=== PATIENT | female | born 1965 | race Caucasian/White ===

== ENCOUNTER 2024-04-20 17:59 | Emergency (ER) | payer OTHER ==
[2024-04-20 18:08] VITALS: RESP 17
--- NOTE | 2024-04-20 18:14 | ED ---
Fall HPI - General Chief Complaint: Extremity Injury, Upper Stated Complaint: fall Source: patient, EMS, RN notes reviewed, old records reviewed Mode of arrival: EMS - History of Present Illness Initial Comments: This is a 58 female to the ER for evaluation patient presents today for evaluation regards to severe right arm pain right shoulder pain after a fall fall off treadmill. 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: yes, by living facility staff Place Fall Occurred: home Loss of Consciousness: none Prolonged Down Time?: no Symptoms Prior to Fall: none Location: face Location - Extremities: Right: Shoulder Severity: severe Severity scale (1-10): 9 Quality: sharp Context: tripped/slipped Associated Symptoms: denies - Related Data Allergies Allergy/AdvReac Type Severity Reaction Status Date / Time aspirin AdvReac Nausea & Verified 04/20/24 18:10 Vomiting iron AdvReac Nausea & Verified 04/20/24 18:10 Vomiting Penicillins AdvReac Nausea & Verified 04/20/24 18:10 Vomiting Review of Systems ROS Statement: Those systems with pertinent positive or pertinent negative responses have been documented in the HPI. ROS Other: All systems not noted in ROS Statement are negative. Past Medical History Past Medical History: Cancer Additional Past Medical History / Comment(s): anxiety, depression, cervical cancer History of Any Multi-Drug Resistant Organisms: None Reported Past Surgical History: Tubal Ligation Past Psychological History: Anxiety, Depression Smoking Status: Former smoker Past Alcohol Use History: Abuse Past Drug Use History: Methamphetamine General Exam General appearance: alert, in no apparent distress Head exam: Present: atraumatic, normocephalic, normal inspection Eye exam: Present: normal appearance, PERRL, EOMI. Absent: scleral icterus, conjunctival injection, periorbital swelling ENT exam: Present: normal exam, mucous membranes moist Neck exam: Present: normal inspection. Absent: tenderness, meningismus, lymphadenopathy Respiratory exam: Present: normal lung sounds bilaterally. Absent: respiratory distress, wheezes, rales, rhonchi, stridor Cardiovascular Exam: Present: regular rate, normal rhythm, normal heart sounds. Absent: systolic murmur, diastolic murmur, rubs, gallop, clicks GI/Abdominal exam: Present: soft, normal bowel sounds. Absent: distended, tenderness, guarding, rebound, rigid Extremities exam: Present: normal inspection, full ROM, normal capillary refill. Absent: tenderness, pedal edema, joint swelling, calf tenderness Back exam: Present: normal inspection Neurological exam: Present: alert, oriented X3, CN II-XII intact Psychiatric exam: Present: normal affect, normal mood Skin exam: Present: warm, dry, intact, normal color. Absent: rash Course Vital Signs 04/20/24 18:02 Temperature 98 F Pulse Rate 68 Respiratory 17 Rate Blood Pressure 129/86 O2 Sat by Pulse 98 Oximetry - Reevaluation(s) Reevaluation #1: 04/20/24 18:54 Medical records reviewed Reevaluation #2: 04/20/24 18:54 Patient's pain is improved Reevaluation #4: Was pt. sent in by a medical professional or institution ([facility], [employer], urgent care, hospital, or fdc...) When possible be specific @ -no Did you speak to anyone other than the patient for history (EMS, parent, family, police, friend...)? What history was obtained from this source @ -no Did you review nursing and triage notes (agree or disagree)? Why? @ -agree Are old charts reviewed (outside hosp., previous admission, EMS record, old EKG, old radiological studies, urgent care reports/EKG's, fdc records)? Report findings @ -yes Differential Diagnosis (chest pain, altered mental status, abdominal pain women, abdominal pain men, vaginal bleeding, weakness, fever, dyspnea, syncope, headache, dizziness, GI bleed, back pain, seizure, CVA, palpatations, mental health, musculoskeletal)? @ -prior EKG interpreted by me (3pts min.). @ -yes X-rays interpreted by me (1pt min.). @ -yes negative for acute disease CT interpreted by me (1pt min.). @ -no U/S interpreted by me (1pt. min.). @ -no What testing was considered but not performed or refused? (CT, X-rays, U/S, labs)? Why? @ -none What meds were considered but not given or refused? Why? @ -none Did you discuss the management of the patient with other professionals (professionals i.e. [facility], [employer], lab, RT, psych nurse, social psychologist, aircraft technician, teacher, forward air controller/air officer, residential case manager)? Give summary @ -no Was smoking cessation discussed for >3mins.? @ -no Was critical care preformed (if so, how long)? @ -no Were there social determinants of health that impacted care today? How? (Homelessness, low income, unemployed, alcoholism, drug addiction, transportation, low edu. Level, literacy, decrease access to med. care, longterm, rehab)? @ -none Was there de-escalation of care discussed even if they declined (Discuss DNR or withdrawal of care, Hospice)? DNR status @ -no What co-morbidities impacted this encounter? (DM, HTN, Smoking, COPD, CAD, Cancer, CVA, ARF, Chemo, Hep., AIDS, mental health diagnosis, sleep apnea, morbid obesity)? @ -none Was patient admitted / discharged? Hospital course, mention meds given and route, prescriptions, significant lab abnormalities, going to OR and other pertinent info. @ - Undiagnosed new problem with uncertain prognosis? @ -no Drug Therapy requiring intensive monitoring for toxicity (Heparin, Nitro, Insulin, Cardizem)? @ -no Were any procedures done? @ -no Diagnosis/symptom? @ - Acute, or Chronic, or Acute on Chronic? @ -Acute Uncomplicated (without systemic symptoms) or Complicated (systemic symptoms)? @ -Complicated Side effects of treatment? @ -no Exacerbation, Progression, or Severe Exacerbation? @ -exacerbation Poses a threat to life or bodily function? How? (Chest pain, [place], [place], pneumonia, PE, COPD, DKA, ARF, appy, cholecystitis, CVA, Diverticulitis, Homicidal, Suicidal, threat to staff... and all critical care pts) @ -yes Disposition Clinical Impression: Shoulder fracture, right, Fall Disposition: HOME SELF-CARE Condition: Good Instructions (If sedation given, give patient instructions): Arm Fracture in Adults (ED) Is patient prescribed a controlled substance at d/c from ED?: No Referrals: Isra Cosme MD [STAFF PHYSICIAN] - 1-2 days Time of Disposition: 19:00
[2024-04-20] MEDS: HYDROmorphone 1 MG/ML 1 ML SYRINGE IM STA ×3 (18:36→19:32)
[2024-04-20] MEDS: IBUPROFEN 600 MG TAB PO STA (18:39)
--- NOTE | 2024-04-20 19:03 | XR ---
EXAMINATION TYPE: XR shoulder complete RT DATE OF EXAM: 04/20/2024 6:58 PM COMPARISON: None CLINICAL INDICATION: Female, 58 years old with history of fall; PHH, pain TECHNIQUE: XR shoulder complete RT; examined in AP, internally rotated and scapular Y projections. FINDINGS/IMPRESSION: 1. Acute fracture of the greater tubercle of the humerus. 2. No evidence or dislocation. 3. Mild degeneration changes, clavicular joint with osteophyte formation and joint space narrowing. [facility], , 04/20/2024 7:01 PM
--- NOTE | 2024-04-20 19:03 | XR ---
EXAMINATION TYPE: XR chest 1V DATE OF EXAM: 04/20/2024 6:58 PM COMPARISON: None CLINICAL INDICATION: Female, 58 years old with history of fall; pain TECHNIQUE: XR chest 1V Frontal view of the chest. FINDINGS: Lungs/Pleura: There is no evidence of pleural effusion, focal consolidation, or pneumothorax. Pulmonary vascularity: Unremarkable. Heart/mediastinum: Cardiomediastinal silhouette is unremarkable. Musculoskeletal: No acute osseous pathology. IMPRESSION: No acute cardiopulmonary disease/process. Proximal right humerus fracture not well appreciated on frontal radiograph. [facility], , 04/20/2024 7:01 PM
[2024-04-20] MEDS: traMADol 50 MG TAB PO STA (19:18)
[2024-04-20] MEDS: IBUPROFEN 600 MG STARTER PACK 4 TAB BTL PO STA (19:29)
[2024-04-20] MEDS: traMADol 50 MG STARTER PACK 3 TAB BTL PO STA (19:29)
[2024-04-20 19:36] VITALS: BP 114/79; PULSE 69; TEMP 98.6
== END 2024-04-20 19:48 | disposition home or self-care (01) ==
LOC: EC 17:59
DX: S42.91XA Fracture of right shoulder girdle, part unspecified, initial encounter for closed fracture (principal); Z88.0 Allergy status to penicillin; Z88.6 Allergy status to analgesic agent; Z91.048 Other nonmedicinal substance allergy status; Z87.891 Personal history of nicotine dependence; W18.30XA Fall on same level, unspecified, initial encounter; Y93.A1 Activity, exercise machines primarily for cardiorespiratory conditioning
CPT/HCPCS: 73030; 71045; 99284; 96372 ×2; J1171